=== PATIENT | female | born 2000 | race Two or more races ===

== ENCOUNTER 2025-08-03 07:24 | Emergency (ER) | payer SELFPAY ==
[~2025-08-03] VITALS: Ht 157.5 cm; Wt 59.0 kg
[2025-08-03 07:33] VITALS: TEMP 98.1
[2025-08-03] MEDS ORDERED: CLIN300C12 PO (07:59)
[2025-08-03] MEDS ORDERED: CEPH-570 PO (07:59)
[2025-08-03] MEDS: LIDOCAINE 2% JEL 5 ML TUBE MC ONE (08:18)
[2025-08-03 08:40] VITALS: BP 140/88
[2025-08-03 08:54] VITALS: O2SAT 97
== END 2025-08-03 09:00 | disposition home or self-care (01) ==
LOC: ER 07:34
DX: K61.0 Anal abscess (principal)

== ENCOUNTER 2025-08-07 12:46 | Emergency (ER) | payer SELFPAY ==
[~2025-08-07] VITALS: Ht 162.6 cm; Wt 63.5 kg
[~2025-08-07 12:46] MED LIST: CEPH-570 PO; CLIN300C12 PO
[2025-08-07 13:03] VITALS: TEMP 98.3
[2025-08-07] MEDS ORDERED: LIDOCAINE 1%-EPI 1:100,000 20 ML VIAL ONE (13:25)
[2025-08-07] MEDS: LIDOCAINE 1%-EPI 1:100,000 20 ML VIAL TP ONE (13:44)
[2025-08-07] MEDS ORDERED: IBUP-1490 PO (14:02)
[2025-08-07] MEDS: KETOROLAC TROMETHAMINE 15 MG/ML VIAL IM ONE (14:32)
[2025-08-07 14:37] VITALS: BP 125/85; O2SAT 100
== END 2025-08-07 14:33 | disposition home or self-care (01) ==
LOC: ER 12:48
DX: L02.215 Cutaneous abscess of perineum (principal)
CPT/HCPCS: 46050; 99284; 96372; J1885; A6403; A6407; J3490